=== PATIENT | male | born 1950 | race Caucasian/White ===

== ENCOUNTER 2019-07-27 04:54 | Inpatient (IN) ==
[2019-07-27 05:07] LABS: Hematocrit 29.8 % (37.5-50.1); Hemoglobin 9.8 g/dL (12.9-16.9); Mean Corpuscular HGB Conc 32.9 g/dL (31.6-35.5); Mean Corpuscular Hemoglobin 28.4 pg (28.0-33.3); Mean Corpuscular Volume 86.4 fL (83.0-100.0); Mean Platelet Volume 11.2 fL (9.4-12.4); Platelet Count 274 K/mcL (140-400); Red Blood Count 3.45 M/mcL (4.19-5.50); Red Cell Distribution Width 14.8 % (11.5-14.5); White Blood Count 6.6 K/mcL (4.3-11.1)
[2019-07-27] MEDS ORDERED: Isovue-370 500 ML BOTTLE IVP ONE (05:12)
[2019-07-27 05:16] LABS: Prothrombin Time 11.6 Seconds (9.4-12.1)
[2019-07-27 05:19] LABS: Activated Partial Thrombo Time 39.2 Seconds (26.0-36.0)
[2019-07-27 05:27] LABS: BUN/Creatinine Ratio 22 (6-26); Blood Urea Nitrogen 82 mg/dL (8-23); Calcium 8.8 mg/dL (8.6-10.3); Carbon Dioxide 25 mEq/L (23-29); Chloride 100 mEq/L (98-107); Glucose 213 mg/dL (70-105); Osmolality,Calculated 313 (280-300); Potassium 5.4 mEq/L (3.5-5.1); Sodium 136 mEq/L (136-145); eGFR For African Americans 19 (> 60); eGFR For Non-African Americans 16 (> 60)
[2019-07-27 05:28] LABS: Troponin I < 0.03 ng/mL (< 0.04)
[2019-07-27] MEDS ORDERED: Aspirin 81 MG TAB.CHEW PO STA (05:51)
[2019-07-27] MEDS ORDERED: 0.9 % Sodium Chloride 1,000 ML IVC STA (05:54)
[2019-07-27] MEDS ORDERED: Insulin Human Regular 10 UNIT in 0.9 % Sodium Chloride 10 ML IV ONE (05:55)
[2019-07-27] MEDS ORDERED: *HR* Dextrose 50 % in Water (Syg) 50 ML SYRINGE IVP STA (05:55)
[2019-07-27] MEDS: Calcium Gluconate 1gm/50mL 1 GM/50 ML BAG IVPB SCH ×2 (06:16→08:20)
[2019-07-27] MEDS ORDERED: *HR* Dextrose 50 % in Water (Syg) 50 ML SYRINGE ONE (06:24)
[2019-07-27] MEDS ORDERED: Naloxone 0.4 MG/ML INJ IVP PRN (08:23)
[2019-07-27] MEDS ORDERED: Ondansetron 4 MG/2 ML VIAL IVP PRN (08:23)
[2019-07-27] MEDS ORDERED: *HR* Dextrose 50 % in Water (Syg) 50 ML SYRINGE IVP PRN (09:05)
[2019-07-27] MEDS ORDERED: D5% in Water 1,000 ML IVC PRN (09:05)
[2019-07-27] MEDS ORDERED: Dextrose Gel 15 GM/37.5 ML TUBE PO PRN ×2 (09:05)
[2019-07-27] MEDS: 0.9 % Sodium Chloride 1,000 ML IVC SCH (09:13)
[2019-07-27] MEDS: Insulin LISPRO 300 UNITS/3 ML VIAL SQ SCH ×2 (12:00→17:38)
[2019-07-27] MEDS ORDERED: Hydrocortisone Sodium Succ 100 MG/2 ML VIAL IVP ONE (14:21)
[2019-07-27 14:51] LABS: Calcium 8.6 mg/dL (8.6-10.3); Potassium 5.1 mEq/L (3.5-5.1)
[2019-07-27 15:12] LABS: Thyroid Stimulating Hormone 9.378 mcIU/mL (0.340-5.600)
[2019-07-27] MEDS: *HR* Heparin 5,000 UNIT/ML VIAL SQ SCH (17:38)
[2019-07-27] MEDS: Sennosides/Docusate Sodium TABLET PO SCH (20:19)
[2019-07-27] MEDS: Acyclovir 750 MG in D5% in Water 250 ML IVPB SCH (20:19)
[2019-07-28] MEDS: Insulin LISPRO 300 UNITS/3 ML VIAL SQ SCH ×4 (00:04→19:36)
[2019-07-28] MEDS: 0.9 % Sodium Chloride 1,000 ML IVC SCH (04:34)
[2019-07-28 05:55] LABS: Basophils % 0.5 %; Eosinophils % 0.3 %; Hematocrit 28.5 % (37.5-50.1); Hemoglobin 9.4 g/dL (12.9-16.9); Immature Granulocytes % 0.4 % (0-4); Lymphocytes # 1.1 K/mcL (0.6-4.6); Lymphocytes % 14.2 %; Mean Corpuscular Hemoglobin 28.4 pg (28.0-33.3); Mean Corpuscular Volume 86.1 fL (83.0-100.0); Mean Platelet Volume 11.5 fL (9.4-12.4); Monocytes # 0.7 K/mcL (0.0-1.3); Monocytes % 8.3 %; Platelet Count 313 K/mcL (140-400); Red Blood Count 3.31 M/mcL (4.19-5.50); Segmented Neutrophils % 76.3 %; White Blood Count 7.8 K/mcL (4.3-11.1)
[2019-07-28] MEDS: Acyclovir 750 MG in D5% in Water 250 ML IVPB SCH ×2 (05:58→19:38)
[2019-07-28] MEDS: *HR* Heparin 5,000 UNIT/ML VIAL SQ SCH ×2 (05:59→19:37)
[2019-07-28 06:15] LABS: Calcium 8.7 mg/dL (8.6-10.3); Chol/HDL Ratio 3.1 (0-4.9); Magnesium 2.1 mg/dL (1.6-2.6)
[2019-07-28] MEDS ORDERED: Levothyroxine 25 MCG TABLET PO SCH (06:30)
[2019-07-28 08:21] LABS: Estimated Average Glucose 212 mg/dl
[2019-07-28] MEDS: Aspirin 81 MG TAB.CHEW PO SCH (09:35)
[2019-07-28] MEDS: carvediloL 6.25 MG TABLET PO SCH ×2 (09:35→16:19)
[2019-07-28] MEDS: Sennosides/Docusate Sodium TABLET PO SCH (09:36)
[2019-07-28] MEDS ORDERED: E-Z-HD (BARIUM SULF) SUSPENSION PO ONE (09:47)
[2019-07-28] MEDS ORDERED: E-Z-PAQUE (BARIUM SULF) SUSP 1 BOTTLE PO ONE (09:47)
[2019-07-28] MEDS: NIFEdipine XL (24 HR) 30 MG TAB.ER.24 PO SCH (12:38)
[2019-07-28 13:14] LABS: Albumin 2.9 g/dL (3.5-5.7); Albumin/Globulin Ratio 0.8 (1.1-2.2); Bilirubin,Indirect 0.2 mg/dL (0.0-1.0); Bilirubin,Total 0.2 mg/dL (0.3-1.0); Globulin 3.5 g/dL (2.4-3.5); Total Protein 6.4 g/dL (6.4-8.9)
[2019-07-28] MEDS: Sodium Bicarbonate 150 MEQ in D5% in Water 1,000 ML IVC SCH (13:25)
[2019-07-28 14:11] LABS: Bilirubin,Urine Negative (Negative); Blood,Urine Moderate (Negative); Clarity,Urine Cloudy (Clear); Color,Urine Yellow (Yellow); Glucose,Urine (UA) Normal (Normal); Ketones,Urine Negative (Negative); Leukocyte Esterase,Urine Small (Negative); Nitrite,Urine Negative (Negative); Protein,Urine 100 mg/dL (Neg-Trace); Specific Gravity,Urine 1.017 (1.010-1.025); Urobilinogen,Urine Normal (Normal)
[2019-07-28 14:15] LABS: Hyaline Casts,Urine None Seen per lpf (None-Few); Squamous Epithelial Cell,Urine Many per lpf (None-Few)
[2019-07-28 14:39] LABS: Bacteria,Urine Few per hpf (None-Few)
[2019-07-29] MEDS: NIFEdipine XL (24 HR) 30 MG TAB.ER.24 PO SCH (01:02)
[2019-07-29] MEDS: Sennosides/Docusate Sodium TABLET PO SCH ×3 (01:02→20:22)
[2019-07-29] MEDS: Insulin LISPRO 300 UNITS/3 ML VIAL SQ SCH ×4 (01:24→16:44)
[2019-07-29] MEDS: Sodium Bicarbonate 150 MEQ in D5% in Water 1,000 ML IVC SCH ×2 (02:59→14:01)
[2019-07-29 05:32] LABS: Basophils # 0.1 K/mcL (0.0-0.2); Basophils % 1.3 %; Eosinophils # 0.2 K/mcL (0.0-0.6); Eosinophils % 3.5 %; Hematocrit 27.8 % (37.5-50.1); Hemoglobin 9.1 g/dL (12.9-16.9); Immature Granulocytes % 0.4 % (0-4); Lymphocytes % 17.4 %; Mean Corpuscular HGB Conc 32.7 g/dL (31.6-35.5); Mean Corpuscular Hemoglobin 28.2 pg (28.0-33.3); Mean Corpuscular Volume 86.1 fL (83.0-100.0); Mean Platelet Volume 10.6 fL (9.4-12.4); Monocytes # 0.7 K/mcL (0.0-1.3); Monocytes % 12.3 %; Neutrophils # 3.6 K/mcL (1.6-8.9); Platelet Count 272 K/mcL (140-400); Red Blood Count 3.23 M/mcL (4.19-5.50); Red Cell Distribution Width 15.3 % (11.5-14.5); Segmented Neutrophils % 65.1 %; White Blood Count 5.5 K/mcL (4.3-11.1)
[2019-07-29 05:55] LABS: Calcium 8.5 mg/dL (8.6-10.3); Potassium 4.4 mEq/L (3.5-5.1)
[2019-07-29] MEDS: *HR* Heparin 5,000 UNIT/ML VIAL SQ SCH ×2 (05:55→16:39)
[2019-07-29 05:57] LABS: % Iron Saturation 21 % (20-55); Iron 50 mcg/dL (65-175); Transferrin 168 mg/dL (203-362)
[2019-07-29] MEDS: Acyclovir 750 MG in D5% in Water 250 ML IVPB SCH ×2 (06:03→18:16)
[2019-07-29 06:12] LABS: Ferritin 269 ng/mL (20-250)
[2019-07-29 06:17] LABS: Folate 11.9 ng/mL (3.0-16.0)
[2019-07-29] MEDS: Aspirin 81 MG TAB.CHEW PO SCH (08:41)
[2019-07-29] MEDS: carvediloL 6.25 MG TABLET PO SCH ×2 (08:41→16:34)
[2019-07-29 12:22] LABS: Appearance,CSF Clear (Clear)
[2019-07-29 12:30] LABS: Red Blood Cell,CSF < 0.002 M/mcL
[2019-07-29 13:00] LABS: Glucose,CSF 96 mg/dL (40-70); Total Protein,CSF 64 mg/dL (15-45)
[2019-07-29 15:54] LABS: Protein/Creatinine Ratio,Urine 5.29 mg/mg (0.00-0.20)
[2019-07-29] MEDS: NIFEdipine XL (24 HR) 60 MG TAB.ER.24 PO SCH (22:02)
[2019-07-30] MEDS: Insulin LISPRO 300 UNITS/3 ML VIAL SQ SCH ×3 (01:00→13:13)
[2019-07-30 02:29] LABS: ABG Base Excess 5 mEq/L (-2 to 3); ABG HCO3 30 mEq/L (21-27); ABG Oxygen Saturation 97 % (95-98); ABG PCO2 44 mmHg (35-45); ABG PH 7.43 pH Units (7.32-7.45); ABG PO2 92 mmHg (85-104); ABG TCO2 31 mEq/L (20-26)
[2019-07-30] MEDS: *HR* Heparin 5,000 UNIT/ML VIAL SQ SCH ×2 (06:26→17:57)
[2019-07-30] MEDS: Acyclovir 750 MG in D5% in Water 250 ML IVPB SCH ×2 (06:27→17:58)
[2019-07-30 07:49] LABS: Basophils # 0.1 K/mcL (0.0-0.2); Basophils % 1.6 %; Eosinophils # 0.4 K/mcL (0.0-0.6); Eosinophils % 5.6 %; Hemoglobin 8.9 g/dL (12.9-16.9); Immature Granulocytes % 0.6 % (0-4); Lymphocytes # 0.8 K/mcL (0.6-4.6); Lymphocytes % 12.9 %; Mean Corpuscular HGB Conc 30.7 g/dL (31.6-35.5); Mean Corpuscular Hemoglobin 27.9 pg (28.0-33.3); Mean Corpuscular Volume 90.9 fL (83.0-100.0); Monocytes # 0.6 K/mcL (0.0-1.3); Monocytes % 9.5 %; Neutrophils # 4.5 K/mcL (1.6-8.9); Platelet Count 280 K/mcL (140-400); Red Blood Count 3.19 M/mcL (4.19-5.50); Red Cell Distribution Width 15.6 % (11.5-14.5); Segmented Neutrophils % 69.8 %; White Blood Count 6.4 K/mcL (4.3-11.1)
[2019-07-30 08:04] LABS: Calcium 8.6 mg/dL (8.6-10.3); Magnesium 2.1 mg/dL (1.6-2.6); Potassium 4.3 mEq/L (3.5-5.1)
[2019-07-30] MEDS: Sennosides/Docusate Sodium TABLET PO SCH ×2 (08:36→20:17)
[2019-07-30] MEDS: Aspirin 81 MG TAB.CHEW PO SCH (08:37)
[2019-07-30] MEDS: carvediloL 6.25 MG TABLET PO SCH ×2 (08:37→17:58)
[2019-07-30] MEDS: NIFEdipine XL (24 HR) 60 MG TAB.ER.24 PO SCH (20:17)
[2019-07-30] MEDS: hydrALAZINE 10 MG TABLET PO SCH (20:17)
[2019-07-30] MEDS ORDERED: Insulin LISPRO 300 UNITS/3 ML VIAL SQ SCH (21:00)
[2019-07-31] MEDS: *HR* Heparin 5,000 UNIT/ML VIAL SQ SCH (05:58)
[2019-07-31] MEDS: Acyclovir 750 MG in D5% in Water 250 ML IVPB SCH (06:00)
[2019-07-31 06:25] LABS: Basophils % 0.6 %; Eosinophils # 0.3 K/mcL (0.0-0.6); Hematocrit 26.9 % (37.5-50.1); Hemoglobin 8.5 g/dL (12.9-16.9); Immature Granulocytes % 0.5 % (0-4); Lymphocytes # 0.8 K/mcL (0.6-4.6); Lymphocytes % 12.1 %; Mean Corpuscular HGB Conc 31.6 g/dL (31.6-35.5); Mean Corpuscular Hemoglobin 28.3 pg (28.0-33.3); Mean Corpuscular Volume 89.7 fL (83.0-100.0); Mean Platelet Volume 10.9 fL (9.4-12.4); Monocytes # 0.7 K/mcL (0.0-1.3); Neutrophils # 4.8 K/mcL (1.6-8.9); Platelet Count 263 K/mcL (140-400); Red Cell Distribution Width 15.4 % (11.5-14.5); Segmented Neutrophils % 71.8 %; White Blood Count 6.6 K/mcL (4.3-11.1)
[2019-07-31 06:53] VITALS: BP 101/53
[2019-07-31] MEDS: Aspirin 81 MG TAB.CHEW PO SCH (08:20)
[2019-07-31] MEDS: Insulin LISPRO 300 UNITS/3 ML VIAL SQ SCH (08:21)
[2019-07-31] MEDS: carvediloL 6.25 MG TABLET PO SCH (08:21)
[2019-07-31] MEDS: Sennosides/Docusate Sodium TABLET PO SCH (08:22)
[2019-07-31] MEDS: hydrALAZINE 10 MG TABLET PO SCH (08:22)
[2019-07-31 08:43] LABS: Calcium 8.1 mg/dL (8.6-10.3); Magnesium 1.9 mg/dL (1.6-2.6); Potassium 4.4 mEq/L (3.5-5.1)
[2019-08-01] MEDS ORDERED: Cholecalciferol (D-3) 1,000 UNIT (25MCG) TABLET PO SCH (11:32)
[2019-08-01 13:29] LABS: HSV 2 Glycoprotein G IgG CSF 0.05 IV (<=0.89)
[2019-08-04 10:03] LABS: HSV 1 Glycoprotein G IgG CSF 2.97 IV (<=0.89)
== END 2019-07-31 10:26 | DRG 78 ==
LOC: EMEROOARM 04:54 → CDU 04:54 → SUATTDRO 11:29 → 2NNU 17:58 → 3ANU 07-28 20:10
PROVIDERS: ADMIT Family Medicine; ATTEND Pharmacist

== ENCOUNTER 2019-08-14 13:30 | Inpatient (IN) ==
[2019-08-14] MEDS ORDERED: Morphine Sulfate 2 MG/ML SYRINGE IVP STA (14:49)
[2019-08-14 15:23] LABS: Calcium 8.9 mg/dL (8.6-10.3); Potassium 5.7 mEq/L (3.5-5.1)
[2019-08-14 17:29] LABS: Basophils # 0.1 K/mcL (0.0-0.2); Basophils % 0.9 %; Eosinophils # 0.4 K/mcL (0.0-0.6); Eosinophils % 4.7 %; Hematocrit 27.4 % (37.5-50.1); Hemoglobin 8.8 g/dL (12.9-16.9); Immature Granulocytes % 0.3 % (0-4); Lymphocytes # 0.9 K/mcL (0.6-4.6); Lymphocytes % 10.9 %; Mean Corpuscular HGB Conc 32.1 g/dL (31.6-35.5); Mean Corpuscular Hemoglobin 29.4 pg (28.0-33.3); Mean Corpuscular Volume 91.6 fL (83.0-100.0); Mean Platelet Volume 10.6 fL (9.4-12.4); Monocytes # 0.8 K/mcL (0.0-1.3); Monocytes % 10.6 %; Neutrophils # 5.8 K/mcL (1.6-8.9); Platelet Count 246 K/mcL (140-400); Red Blood Count 2.99 M/mcL (4.19-5.50); Segmented Neutrophils % 72.6 %
[2019-08-14 17:53] LABS: Troponin I 0.03 ng/mL (< 0.04)
[2019-08-14] MEDS ORDERED: cloNIDine HCl 0.1 MG TABLET PO STA (18:38)
[2019-08-14] MEDS ORDERED: Furosemide 40 MG/4 ML VIAL IVP ONE (18:43)
[2019-08-14 18:54] LABS: Prothrombin Time 11.7 Seconds (9.4-12.1)
[2019-08-14] MEDS ORDERED: Naloxone 0.4 MG/ML INJ IVP PRN (19:24)
[2019-08-14] MEDS ORDERED: Ondansetron 4 MG/2 ML VIAL IVP PRN (19:24)
[2019-08-14 19:47] LABS: Albumin 3.3 g/dL (3.5-5.7); Albumin/Globulin Ratio 0.9 (1.1-2.2); Globulin 3.5 g/dL (2.4-3.5); Total Protein 6.8 g/dL (6.4-8.9)
[2019-08-14 19:57] LABS: Appearance of Pleural Fl Clear (Clear)
[2019-08-14 20:05] LABS: RBC,Pleural Fluid < 0.002 M/mcL
[2019-08-14 20:23] LABS: LDH,Pleural Fluid 69 Units/L (No Ref Range); Total Protein,Pleural Fluid < 3.0 g/dL
[2019-08-14] MEDS ORDERED: Dextrose Gel 15 GM/37.5 ML TUBE PO PRN ×2 (20:53)
[2019-08-14] MEDS ORDERED: D5% in Water 1,000 ML IVC PRN (20:53)
[2019-08-14] MEDS ORDERED: *HR* Dextrose 50 % in Water (Syg) 50 ML SYRINGE IVP PRN (20:53)
[2019-08-14] MEDS ORDERED: NIFEdipine XL (24 HR) 30 MG TAB.ER.24 PO SCH (21:00)
[2019-08-14] MEDS ORDERED: Ondansetron ODT 4 MG TAB.RAPDIS SL PRN (21:08)
[2019-08-14] MEDS: Insulin LISPRO 300 UNITS/3 ML VIAL SQ SCH (21:25)
[2019-08-14 21:30] LABS: Basophils,Pleural Fluid 0 %; Eosinophils,Pleural Fluid 0 %; Monocytes,Pleural Fluid 0 %
[2019-08-14] MEDS: Sennosides 8.6 MG TABLET PO SCH (21:50)
[2019-08-14] MEDS ORDERED: Ipratropium/Albuterol Neb 3 ML IH PRN (23:36)
[2019-08-15] MEDS: *HR* Heparin 5,000 UNIT/ML VIAL SQ SCH ×4 (01:13→22:46)
[2019-08-15 06:01] LABS: Basophils # 0.1 K/mcL (0.0-0.2); Eosinophils # 0.3 K/mcL (0.0-0.6); Eosinophils % 3.2 %; Hematocrit 27.9 % (37.5-50.1); Hemoglobin 8.8 g/dL (12.9-16.9); Immature Granulocytes % 0.5 % (0-4); Lymphocytes # 0.8 K/mcL (0.6-4.6); Mean Corpuscular HGB Conc 31.5 g/dL (31.6-35.5); Mean Corpuscular Hemoglobin 28.8 pg (28.0-33.3); Mean Corpuscular Volume 91.2 fL (83.0-100.0); Mean Platelet Volume 11.3 fL (9.4-12.4); Monocytes # 0.7 K/mcL (0.0-1.3); Monocytes % 8.4 %; Neutrophils # 6.3 K/mcL (1.6-8.9); Platelet Count 247 K/mcL (140-400); Red Blood Count 3.06 M/mcL (4.19-5.50); Red Cell Distribution Width 18.1 % (11.5-14.5); Segmented Neutrophils % 76.9 %; White Blood Count 8.1 K/mcL (4.3-11.1)
[2019-08-15 06:22] LABS: Calcium 8.7 mg/dL (8.6-10.3); Magnesium 2.6 mg/dL (1.6-2.6); Potassium 5.6 mEq/L (3.5-5.1)
[2019-08-15] MEDS ORDERED: Insulin LISPRO 300 UNITS/3 ML VIAL SQ SCH (08:00)
[2019-08-15] MEDS: Aspirin 81 MG TAB.CHEW PO SCH (08:38)
[2019-08-15] MEDS: carvediloL 6.25 MG TABLET PO SCH ×2 (08:38→17:19)
[2019-08-15] MEDS: Furosemide 40 MG/4 ML VIAL IVP SCH ×2 (08:39→17:21)
[2019-08-15] MEDS: hydrALAZINE 10 MG TABLET PO SCH ×5 (08:43→22:56)
[2019-08-15] MEDS: Insulin LISPRO 300 UNITS/3 ML VIAL SQ SCH ×3 (08:44→17:23)
[2019-08-15] MEDS ORDERED: Insulin DETEMIR 100 UNIT/ML X5UNITS SQ SCH (09:00)
[2019-08-15] MEDS ORDERED: NIFEdipine XL (24 HR) 30 MG TAB.ER.24 PO SCH (21:00)
[2019-08-15] MEDS: Sennosides 8.6 MG TABLET PO SCH (22:46)
[2019-08-16] MEDS: *HR* Heparin 5,000 UNIT/ML VIAL SQ SCH ×3 (05:42→23:26)
[2019-08-16] MEDS: cloNIDine HCl 0.1 MG TABLET PO PRN (06:59)
[2019-08-16] MEDS: Furosemide 40 MG/4 ML VIAL IVP SCH ×2 (08:37→16:38)
[2019-08-16] MEDS: Aspirin 81 MG TAB.CHEW PO SCH (08:37)
[2019-08-16] MEDS: hydrALAZINE 10 MG TABLET PO SCH ×4 (08:37→23:26)
[2019-08-16] MEDS: carvediloL 6.25 MG TABLET PO SCH ×2 (08:37→16:37)
[2019-08-16] MEDS: Insulin LISPRO 300 UNITS/3 ML VIAL SQ SCH ×3 (08:38→16:37)
[2019-08-16] MEDS: NIFEdipine XL (24 HR) 30 MG TAB.ER.24 PO SCH (23:24)
[2019-08-16] MEDS: Sennosides 8.6 MG TABLET PO SCH (23:26)
[2019-08-17] MEDS: *HR* Heparin 5,000 UNIT/ML VIAL SQ SCH ×3 (05:08→20:43)
[2019-08-17] MEDS: Insulin LISPRO 300 UNITS/3 ML VIAL SQ SCH ×4 (10:20→20:39)
[2019-08-17] MEDS: hydrALAZINE 10 MG TABLET PO SCH (10:20)
[2019-08-17] MEDS: Furosemide 40 MG/4 ML VIAL IVP SCH ×2 (10:20→17:25)
[2019-08-17] MEDS: Aspirin 81 MG TAB.CHEW PO SCH (10:20)
[2019-08-17] MEDS: carvediloL 6.25 MG TABLET PO SCH ×2 (10:20→17:25)
[2019-08-17] MEDS ORDERED: *HR* OxyCODONE Immed Rel 5 MG TABLET PO PRN (11:12)
[2019-08-17] MEDS: cloNIDine HCl 0.1 MG TABLET PO PRN (11:50)
[2019-08-17] MEDS: hydrALAZINE 25 MG TABLET PO SCH ×3 (13:34→20:43)
[2019-08-17] MEDS: Sennosides 8.6 MG TABLET PO SCH (20:43)
[2019-08-17] MEDS: NIFEdipine XL (24 HR) 30 MG TAB.ER.24 PO SCH (20:44)
[2019-08-18] MEDS: *HR* Heparin 5,000 UNIT/ML VIAL SQ SCH ×3 (05:24→21:10)
[2019-08-18] MEDS: Furosemide 40 MG/4 ML VIAL IVP SCH (09:03)
[2019-08-18] MEDS: Aspirin 81 MG TAB.CHEW PO SCH (09:03)
[2019-08-18] MEDS: carvediloL 6.25 MG TABLET PO SCH ×2 (09:03→17:27)
[2019-08-18] MEDS: Insulin LISPRO 300 UNITS/3 ML VIAL SQ SCH ×4 (09:07→20:59)
[2019-08-18] MEDS: hydrALAZINE 25 MG TABLET PO SCH ×4 (12:36→21:10)
[2019-08-18] MEDS: Sennosides 8.6 MG TABLET PO SCH (21:10)
[2019-08-18] MEDS: NIFEdipine XL (24 HR) 30 MG TAB.ER.24 PO SCH (22:37)
[2019-08-19] MEDS: *HR* Heparin 5,000 UNIT/ML VIAL SQ SCH ×3 (05:14→21:54)
[2019-08-19] MEDS: Insulin LISPRO 300 UNITS/3 ML VIAL SQ SCH ×4 (08:49→21:54)
[2019-08-19] MEDS: Aspirin 81 MG TAB.CHEW PO SCH (08:51)
[2019-08-19] MEDS: carvediloL 6.25 MG TABLET PO SCH ×2 (08:51→16:18)
[2019-08-19] MEDS: hydrALAZINE 25 MG TABLET PO SCH ×4 (08:51→21:45)
[2019-08-19] MEDS: Furosemide 40 MG/4 ML VIAL IVP SCH (08:52)
[2019-08-19] MEDS: Sennosides 8.6 MG TABLET PO SCH (21:46)
[2019-08-19] MEDS: NIFEdipine XL (24 HR) 30 MG TAB.ER.24 PO SCH (21:53)
[2019-08-20] MEDS: *HR* Heparin 5,000 UNIT/ML VIAL SQ SCH (05:55)
[2019-08-20] MEDS: Aspirin 81 MG TAB.CHEW PO SCH (09:17)
[2019-08-20] MEDS: hydrALAZINE 25 MG TABLET PO SCH ×2 (09:17→12:15)
[2019-08-20] MEDS: carvediloL 6.25 MG TABLET PO SCH (09:18)
[2019-08-20] MEDS: Furosemide 40 MG/4 ML VIAL IVP SCH (09:18)
[2019-08-20] MEDS: Insulin LISPRO 300 UNITS/3 ML VIAL SQ SCH ×2 (09:19→12:17)
[2019-08-20 11:22] VITALS: BP 136/58
[2019-08-20] MEDS ORDERED: FLU Vac QV 19-20 (6Month+)/PF 0.5 ML SYRINGE IM ONE (11:33)
== END 2019-08-20 13:00 | DRG 291 ==
LOC: 2ANU 13:30 → EMEROOARM 13:30 → SUATTDRO 19:19 → 2ANU 19:50
PROVIDERS: ADMIT Internal Medicine; ATTEND Internal Medicine